=== PATIENT | male | born 1950 | race Caucasian/White ===

== ENCOUNTER 2016-12-14 06:01 | Day surgery (SDC) | payer MEDICARE, BC ==
[~2016-12-14] VITALS: Ht 177.8 cm; Wt 95.1 kg
[~2016-12-14 06:01] MED LIST: ALLOPURINOL300 MG PO; BENADRYL-DPS25 MG PO; DIOVAN320 MG PO; HCTZ12.5 MG PO; HYDROCODONE 5MG/5 MG PO; LOPRESSOR DPS100 MG PO; MICRO-K DPS10 MEQ PO; NORVASC DPS10 MG PO; OMEGA-3 DPS1000 MG PO; ZOCOR DPS20 MG PO
--- NOTE | 2016-12-17 11:05 | OR ---
ADMIT: 12/14/2016 RM/LOC: [facility] MR#: [id number] [id number] TIMAVERY BROWN [place] [address] [place] [address] Operative/Delivery Room Report SEX: M AGE: 66 : 1950 SURGERY DATE: 12/14/2016 SURGEON: Washington Estrada MD PREOPERATIVE DIAGNOSIS: History of colon cancer. POSTOPERATIVE DIAGNOSES: 1. History of colon cancer without evidence of recurrence. 2. Polyps in the transverse colon and at 10 cm. PROCEDURE: Complete colonoscopy with snare cautery polypectomy x2. ANESTHESIA: IV general. DESCRIPTION OF PROCEDURE: The patient was taken to the endoscopy suite and placed left side down on his hospital cart. IV sedation was established. A rectal exam was performed, there were no palpable abnormalities. The flexible colonoscope was advanced under direct visualization through the colon to the ileocolonic anastomosis. This area was widely patent without evidence of recurrence. The prep was excellent. Care was taken upon withdrawal of the scope to examine mucosa of the colon. Just distal, approximately 10 cm to the anastomosis, was a small 5-6 cm sessile polyp. This was removed in its entirety with snare cautery. This was retrieved with suction, however, no polyp trap was on, so, it was not retrieved for pathology. The remainder of the transverse colon was normal. In the distal descending colon and sigmoid, there was scattered diverticulosis. The scope was withdrawn to the rectum and at 10 cm, a sessile approximate 9 mm polyp was visualized. This was removed with snare cautery with several passes to negative margins grossly of the mucosa. This was retrieved with suction and a polyp trap. Air was suctioned after retroflexion of the scope, revealed no other abnormalities. The patient tolerated the procedure well and transferred to the recovery area in stable condition. Washington Estrada MD/ jigar JOB #: [id number] CC: Washington Etsrada, Attending Physician Denny Munson, Family Physician
== END 2016-12-14 09:14 | disposition home or self-care (01) ==
LOC: SSS 06:01
PROC: 0DBP8ZX Excision of Rectum, Via Natural or Artificial Opening Endoscopic, Diagnostic (ICD-10-PCS; principal; 2016-12-14)
DX: Z12.11 Encounter for screening for malignant neoplasm of colon (principal); D12.8 Benign neoplasm of rectum; I10 Essential (primary) hypertension; Z79.899 Other long term (current) drug therapy; Z98.890 Other specified postprocedural states; Z85.528 Personal history of other malignant neoplasm of kidney